=== PATIENT | male | born 1950 | race Caucasian/White ===

== ENCOUNTER 2018-12-28 09:37 | Inpatient (IN) | payer OTHER ==
[2018-12-28 10:45] VITALS: BMI 24.7
--- NOTE | 2018-12-28 11:32 | HP ---
CIWA Score Nausea/Vomitin Muscle Tremors: 3 Anxiety: 3 Agitation: 3 Paroxysmal Sweats: 1-Minimal Palms Moist Orientation: 0-Oriented Tacttile Disturbances: 1-Very Mild Itch/Numbness Auditory Disturbances: 1-Very Mild Visual Disturbances: 0-None Headache: 2-Mild CIWA-Ar Total Score: 16 - Admission Criteria OASAS Guidelines: Admission for Medically Managed Detox: Requires at least one of the followin. CIWA greater than 12 2. Seizures within the past 24 hours 3. Delirium tremens within the past 24 hours 4. Hallucinations within the past 24 hours 5. Acute intervention needed for co occurring medical disorder 6. Acute intervention needed for co occurring psychiatric disorder 7. Severe withdrawal that cannot be handled at a lower level of care (continued vomiting, continued diarrhea, abnormal vital signs) requiring intravenous medication and/or fluids 8. Admission ROS S - HPI Chief Complaint: i need help to stop drinking alcohol Allergies/Adverse Reactions: Allergies Allergy/AdvReac Type Severity Reaction Status Date / Time No Known Allergies Allergy Verified 12/28/18 10:33 History of Present Illness: this 68 years old male wit alcohol dependence,seeking detox,withdrawal symptom, seen in [facility] last night ,stated had altercation with police last night ,had fx of humerus left also receiving librium and pain killer medication in [facility] multiple admissions in detox,last 2016 in [facility] hypertension,type 2 dm syncope alcohol related asthma left upper arm with immobilization and arm sling no significant period of sobriety plan for out patient program and follow up with clinic at [facility] - Ebola screening Have you traveled outside of the country in the last 21 days: No Have you had contact with anyone from an Ebola affected area: No Do you have a fever: No - Review of Systems Constitutional: Loss of Appetite, Malaise, Night Sweats, Changes in sleep EENT: reports: Nose Congestion Respiratory: reports: No Symptoms reported Cardiac: reports: No Symptoms Reported GI: reports: Nausea, Indigestion, Abdominal cramping : reports: No Symptoms Reported, Other (bph) Musculoskeletal: reports: Back Pain, Muscle Pain Integumentary: reports: Dryness Neuro: reports: Headache, Tremors Endocrine: reports: No Symptoms Reported, Other (type 2 dm) Hematology: reports: No Symptoms Reported Psychiatric: reports: No Sypmtoms Reported, Judgement Intact, Mood/Affect Appropiate, Orientated x3 Other Systems: Reviewed and Negative Patient History - Patient Medical History Hx Anemia: No Hx Asthma: Yes (on albuterol inhaler) Hx Chronic Obstructive Pulmonary Disease (COPD): No Hx Cancer: No Hx Cardiac Disorders: No Hx Congestive Heart Failure: No Hx Hypertension: Yes (currently on treatment) Hx Hypercholesterolemia: No Hx Pacemaker: No HX Cerebrovascular Accident: No Hx Seizures: No Hx Dementia: No Hx Diabetes: Yes (NIDDM) Hx Gastrointestinal Disorders: Yes (appendectomy in 2013) Hx Liver Disease: Yes Hx Genitourinary Disorders: No Hx Sexually Transmitted Disorders: No Hx Renal Disease (ESRD): No Hx Thyroid Disease: No Hx Human Immunodeficiency Virus (HIV): No (last 10/13 negative) Hx Hepatitis C: No Hx Depression: Yes Hx Suicide Attempt: No Hx Schizophrenia: No Other Medical History: no suicidal,no homicidal,fx of left humerus on 12/28/18 treated at [facility] - Patient Surgical History Past Surgical History: Yes Hx Neurologic Surgery: No Hx Cataract Extraction: No Hx Cardiac Surgery: No Hx Lung Surgery: No Hx Breast Surgery: No Hx Breast Biopsy: No Hx Abdominal Surgery: No Hx Appendectomy: Yes (in 2013) Hx Cholecystectomy: No Hx Genitourinary Surgery: No Hx Section: No Hx Orthopedic Surgery: No Anesthesia Reaction: No - PPD History Previous Implant?: Yes Documented Results: Positive w/o proof Implanted On Prior R Admission?: No PPD to be Administered?: No - Smoking Cessation Smoking history: Never smoked Have you smoked in the past 12 months: No Aproximately how many cigarettes per day: 0 Cigars Per Day: 0 Hx Chewing Tobacco Use: No - Substance & Tx. History Hx Alcohol Use: Yes Hx Substance Use: Yes Substance Use Type: Alcohol Hx Substance Use Treatment: Yes (2017 in [facility]) - Substances abused Alcohol Frequency: Daily Amount used: 7 CANS OF BEER. 1/2 BOTTLE BACARDI Age of first use: 20 Date of last use: 12/27/18 Family Disease History - Family Disease History Family Disease History: Other: Father (ALCOHOL) Admission Physical Exam BHS - Vital Signs Vital Signs: Vital Signs - 24 hr 12/28/18 12/28/18 10:38 10:54 Temperature 99.2 F 99.2 F Pulse Rate 95 H 95 H Respiratory 18 18 Rate Blood Pressure 136/84 136/84 - Physical General Appearance: Yes: Moderate Distress, Tremorous, Irritable, Sweating, Anxious HEENTM: Yes: Normal ENT Inspection, RADU, Pharynx Normal Respiratory: Yes: Lungs Clear, Normal Breath Sounds, No Respiratory Distress Neck: Yes: Within Normal Limits, Supple, Trachea in good position Breast: Yes: Within Normal Limits Cardiology: Yes: Within Normal Limits, Regular Rhythm, Regular Rate, S1, S2 Abdominal: Yes: Within Normal Limits, Normal Bowel Sounds, Non Tender, Flat Genitourinary: Yes: Within Normal Limits Back: Yes: Muscle Spasm Musculoskeletal: Yes: Back pain, Muscle Pain Extremities: Yes: Normal Range of Motion, Tremors, Other (left upper arm in immobilization wtih arm sling) Neurological: Yes: 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 II-XII NML intact, Fully Oriented, Alert, Motor Strength 5/5 Integumentary: Yes: Dry Lymphatic: Yes: Within Normal Limits - Diagnostic (1) Alcohol dependence with uncomplicated withdrawal Current Visit: Yes Status: Acute (2) BPH (benign prostatic hyperplasia) Current Visit: No Status: Acute (3) Hypertension Current Visit: No Status: Acute (4) PPD positive Current Visit: No Status: Acute (5) Type II diabetes mellitus Current Visit: No Status: Acute (6) Syncope Current Visit: Yes Status: Acute (7) Humerus fracture Current Visit: Yes Status: Acute Qualifiers: Laterality: left (8) Weight loss Current Visit: Yes Status: Acute Cleared for Admission S - Detox or Rehab [facility] Level of Care: Medically Managed Detox Regimen/Protocol: Librium Breathalyzer - Breathalyzer Breathalyzer: 0.027 Urine Drug Screen - Test Device Lot number: [id number] Expiration date: 07/24/20 - Control Is test valid?: Yes - Results Drug screen NEGATIVE: No Urine drug screen results: OXY-Oxycodone, BZO-Benzodiazepines Inpatient Rehab Admission - Rehab Decision to Admit Inpatient rehab admission?: No
[2018-12-28] MEDS ORDERED: chlordiazePOXIDE HCL 25 MG CAPSULE PO PRN (11:41)
[2018-12-28] MEDS ORDERED: BISMUTH SUBSALICYLATE 262 MG/15 ML BTL PO PRN (11:41)
[2018-12-28] MEDS ORDERED: MAG HYDROX/AL HYDROX/SIMETH 30 ML UNIT-DOSE CUP PO PRN (11:41)
[2018-12-28] MEDS ORDERED: MENTHOL/PHENOL 1 EACH UD MM PRN (11:41)
[2018-12-28] MEDS ORDERED: MELATONIN 5 MG TABLETS PO PRN (11:41)
[2018-12-28] MEDS ORDERED: hydrOXYzine PAMOATE 25 MG CAPSULE (FP) PO PRN (11:41)
[2018-12-28] MEDS ORDERED: MAGNESIUM CITRATE 300 ML BOTTLE PO PRN (11:41)
[2018-12-28] MEDS ORDERED: MAGNESIUM HYDROX 2400MG/30ML ORAL SUSPENSION 30 ML CUP PO PRN (11:41)
[2018-12-28] MEDS ORDERED: ACETAMINOPHEN 325 MG TABLET (FP) PO PRN (11:41)
[2018-12-28] MEDS ORDERED: ALBUTEROL SO4 8 GM HFA INHALER IH PRN (11:50)
[2018-12-28] MEDS: chlordiazePOXIDE HCL 25 MG CAPSULE PO SCH ×2 (17:35→22:46)
[2018-12-28] MEDS: metFORMIN HCL 500 MG TABLET (FP) PO SCH (17:36)
[2018-12-28] MEDS: IBUPROFEN 400 MG TABLET (FP) PO PRN (17:43)
[2018-12-28 19:04] LABS: HEMATOCRIT 38.5 % (35.4-49); HEMOGLOBIN 12.8 GM/dL (11.7-16.9); MCH 30.1 pg (25.7-33.7); MCHC 33.3 g/dl (32.0-35.9); MEAN CELL VOLUME 90.5 fl (80-96); MEAN PLT VOLUME 8.4 fl (7.5-11.1); PLATELET COUNT 213 K/MM3 (134-434); RBC 4.26 M/mm3 (4.00-5.60); RDW 14.1 % (11.9-15.9); WHITE BLOOD COUNT 5.5 K/mm3 (4.0-10.0)
[2018-12-28 19:31] LABS: ALBUMIN 3.9 g/dl (3.4-5.0); ALK PHOS 113 U/L (45-117); ANION GAP 10 MMOL/L (8-16); BILIRUBIN,TOTAL 1.1 mg/dL (0.2-1); BLOOD UREA NITROGEN 11 mg/dL (7-18); CALCIUM 8.9 mg/dL (8.5-10.1); CHLORIDE 103 mmol/L (98-107); CO2 26 mmol/L (21-32); CREATININE 0.7 mg/dL (0.55-1.3); GLUCOSE,RANDOM 171 mg/dL (74-106); POTASSIUM 3.7 mmol/L (3.5-5.1); SGOT/AST 39 U/L (15-37); SGPT/ALT 21 U/L (13-61); SODIUM 139 mmol/L (136-145); TOT PROT 7.8 g/dl (6.4-8.2)
[2018-12-28] MEDS: MONTELUKAST NA 10 MG TABLET PO SCH (22:45)
[2018-12-28] MEDS: THIAMINE HCL 100 MG TABLET (FP) PO SCH (22:46)
[2018-12-28] MEDS: ACETAMINOPHEN 325 MG TABLET (FP) PO PRN (22:47)
[2018-12-29] MEDS: chlordiazePOXIDE HCL 25 MG CAPSULE PO SCH ×4 (06:54→22:50)
[2018-12-29] MEDS: metFORMIN HCL 500 MG TABLET (FP) PO SCH ×2 (06:55→17:32)
[2018-12-29] MEDS: IBUPROFEN 400 MG TABLET (FP) PO PRN (06:58)
--- NOTE | 2018-12-29 10:07 | PN ---
S CIWA - CIWA Score Nausea/Vomitin Muscle Tremors: 3 Anxiety: 2 Agitation: 2 Paroxysmal Sweats: 1-Minimal Palms Moist Orientation: 0-Oriented Tacttile Disturbances: 1-Very Mild Itch/Numbness Auditory Disturbances: 1-Very Mild Visual Disturbances: 0-None Headache: 2-Mild CIWA-Ar Total Score: 14 BHS Progress Note (SOAP) Subjective: alert,irritable,anxious,interrupted sleep,pain in body ,left upper arm,on immobilization with arm sling left Objective: 12/29/18 10:04 Vital Signs Temperature 97.3 F L 12/29/18 08:11 Pulse Rate 77 12/29/18 08:11 Respiratory Rate 18 12/29/18 08:11 Blood Pressure 154/97 12/29/18 08:11 O2 Sat by Pulse Oximetry (%) 12/29/18 10:04 Laboratory Last Values WBC 5.5 K/mm3 (4.0-10.0) 12/28/18 11:30 RBC 4.26 M/mm3 (4.00-5.60) 12/28/18 11:30 Hgb 12.8 GM/dL (11.7-16.9) 12/28/18 11:30 Hct 38.5 % (35.4-49) 12/28/18 11:30 MCV 90.5 fl (80-96) 12/28/18 11:30 MCH 30.1 pg (25.7-33.7) 12/28/18 11:30 MCHC 33.3 g/dl (32.0-35.9) 12/28/18 11:30 RDW 14.1 % (11.9-15.9) 12/28/18 11:30 Plt Count 213 K/MM3 (134-434) 12/28/18 11:30 MPV 8.4 fl (7.5-11.1) 12/28/18 11:30 Sodium 139 mmol/L (136-145) 12/28/18 11:30 Potassium 3.7 mmol/L (3.5-5.1) 12/28/18 11:30 Chloride 103 mmol/L (98-107) 12/28/18 11:30 Carbon Dioxide 26 mmol/L (21-32) 12/28/18 11:30 Anion Gap 10 MMOL/L (8-16) 12/28/18 11:30 BUN 11 mg/dL (7-18) 12/28/18 11:30 Creatinine 0.7 mg/dL (0.55-1.3) 12/28/18 11:30 Creat Clearance w eGFR 112.15 (>60) 12/28/18 11:30 POC Glucometer 100 UNITS (80-120) 12/29/18 06:50 Random Glucose 171 mg/dL (74-106) H 12/28/18 11:30 Calcium 8.9 mg/dL (8.5-10.1) 12/28/18 11:30 Total Bilirubin 1.1 mg/dL (0.2-1) H 12/28/18 11:30 AST 39 U/L (15-37) H 12/28/18 11:30 ALT 21 U/L (13-61) 12/28/18 11:30 Alkaline Phosphatase 113 U/L (45-117) 12/28/18 11:30 Total Protein 7.8 g/dl (6.4-8.2) 12/28/18 11:30 Albumin 3.9 g/dl (3.4-5.0) 12/28/18 11:30 Assessment: 12/29/18 10:05 withdrawal symptom Plan: continue detox,follow up with [facility] for orthopedic follow up after discharge for fx humerus left
[2018-12-29] MEDS: PRENATAL VITAMINS W/ FOLIC ACID TABLET (FP) PO SCH (10:37)
[2018-12-29 12:27] LABS: URINE APPEARANCE CLEAR; URINE BILIRUBIN NEGATIVE (NEGATIVE); URINE COLOR YELLOW; URINE GLUCOSE (UA) NEGATIVE (NEGATIVE); URINE KETONE NEGATIVE (NEGATIVE); URINE LEUK ESTERASE NEGATIVE (NEGATIVE); URINE NITRITE NEGATIVE (NEGATIVE); URINE PROTEIN NEGATIVE (NEGATIVE); URINE UROBILINOGEN 0.2 mg/dL (0.2-1.0)
[2018-12-29] MEDS: MONTELUKAST NA 10 MG TABLET PO SCH (22:50)
[2018-12-29] MEDS: THIAMINE HCL 100 MG TABLET (FP) PO SCH (22:50)
[2018-12-30] MEDS: metFORMIN HCL 500 MG TABLET (FP) PO SCH ×2 (07:30→17:28)
[2018-12-30] MEDS: chlordiazePOXIDE HCL 25 MG CAPSULE PO SCH ×2 (07:30→11:00)
[2018-12-30] MEDS: ACETAMINOPHEN 325 MG TABLET (FP) PO PRN (07:42)
[2018-12-30] MEDS: PRENATAL VITAMINS W/ FOLIC ACID TABLET (FP) PO SCH (11:00)
[2018-12-30] MEDS: METHOCARBAMOL 500 MG TABLET PO PRN ×2 (11:08→22:33)
--- NOTE | 2018-12-30 16:47 | PN ---
[facility] CIWA - CIWA Score Nausea/Vomitin-No Nausea/No Vomiting Muscle Tremors: 2 Anxiety: 4-Mod. Anxious/Guarded Agitation: 0-Normal Activity Paroxysmal Sweats: 1-Minimal Palms Moist Orientation: 2-Disoriented Date<2 days Tacttile Disturbances: 0-None Auditory Disturbances: 0-None Visual Disturbances: 2-Mild Sensitivity Headache: 0-None Present CIWA-Ar Total Score: 11 S Progress Note (SOAP) Subjective: Anxious, tremors, Body aches. Objective: PATIENT A & O X 2 (UNCERTAIN ABOUT CURRENT DAY / DATE). IN NO ACUTE DISTRESS. PATIENT OBSERVED LYING IN BED WITH LEFT ARM IN SLING. 12/30/18 16:45 Vital Signs Temperature 98.4 F 12/30/18 13:46 Pulse Rate 115 H 12/30/18 13:46 Respiratory Rate 18 12/30/18 13:46 Blood Pressure 128/80 12/30/18 13:46 O2 Sat by Pulse Oximetry (%) Laboratory Tests 12/28/18 12/28/18 12/28/18 11:15 11:30 11:30 WBC 5.5 RBC 4.26 Hgb 12.8 Hct 38.5 MCV 90.5 MCH 30.1 MCHC 33.3 RDW 14.1 Plt Count 213 MPV 8.4 Sodium Potassium Chloride Carbon Dioxide Anion Gap BUN Creatinine Creat Clearance w eGFR POC Glucometer 163 Random Glucose Calcium Total Bilirubin AST ALT Alkaline Phosphatase Total Protein Albumin Urine Color Urine Appearance Urine pH Ur Specific [place] Urine Protein Urine Glucose (UA) Urine Ketones Urine Blood Urine Nitrite Urine Bilirubin Urine Urobilinogen Ur Leukocyte Esterase RPR Titer Nonreactive 12/28/18 12/28/18 12/29/18 11:30 16:46 06:50 WBC RBC Hgb Hct MCV MCH MCHC RDW Plt Count MPV Sodium 139 Potassium 3.7 Chloride 103 Carbon Dioxide 26 Anion Gap 10 BUN 11 Creatinine 0.7 Creat Clearance w eGFR 112.15 POC Glucometer 121 100 Random Glucose 171 H Calcium 8.9 Total Bilirubin 1.1 H AST 39 H ALT 21 Alkaline Phosphatase 113 Total Protein 7.8 Albumin 3.9 Urine Color Urine Appearance Urine pH Ur Specific [place] Urine Protein Urine Glucose (UA) Urine Ketones Urine Blood Urine Nitrite Urine Bilirubin Urine Urobilinogen Ur Leukocyte Esterase RPR Titer 12/29/18 12/29/18 12/30/18 10:00 16:26 07:26 WBC RBC Hgb Hct MCV MCH MCHC RDW Plt Count MPV Sodium Potassium Chloride Carbon Dioxide Anion Gap BUN Creatinine Creat Clearance w eGFR POC Glucometer 128 114 Random Glucose Calcium Total Bilirubin AST ALT Alkaline Phosphatase Total Protein Albumin Urine Color Yellow Urine Appearance Clear Urine pH 7.0 Ur Specific [place] 1.007 L Urine Protein Negative Urine Glucose (UA) Negative Urine Ketones Negative Urine Blood Negative Urine Nitrite Negative Urine Bilirubin Negative Urine Urobilinogen 0.2 Ur Leukocyte Esterase Negative RPR Titer 12/30/18 16:36 WBC RBC Hgb Hct MCV MCH MCHC RDW Plt Count MPV Sodium Potassium Chloride Carbon Dioxide Anion Gap BUN Creatinine Creat Clearance w eGFR POC Glucometer 125 Random Glucose Calcium Total Bilirubin AST ALT Alkaline Phosphatase Total Protein Albumin Urine Color Urine Appearance Urine pH Ur Specific [place] Urine Protein Urine Glucose (UA) Urine Ketones Urine Blood Urine Nitrite Urine Bilirubin Urine Urobilinogen Ur Leukocyte Esterase RPR Titer LABS NOTED. 12/30/18 16:46 Assessment: 12/30/18 16:45 WITHDRAWAL SYMPTOMS. Plan: CONTINUE DETOX. INCREASE DAILY PO FLUID / WATER INTAKE. PATIENT ADVISED TO FOLLOW-UP AT [facility] ([place], [place]) AFTER DISCHARGE FORM DETOX UNIT FOR FRACTURE OF HUMERUS OF LEFT ARM (PATIENT INITIALLY TREATED AT [facility] AFTER FRACTURE OCCURRED).
[2018-12-30] MEDS ORDERED: chlordiazePOXIDE HCL 10 MG CAPSULE PO PRN (17:00)
[2018-12-30] MEDS: chlordiazePOXIDE HCL 10 MG CAPSULE PO SCH ×2 (17:28→22:31)
[2018-12-30] MEDS: IBUPROFEN 400 MG TABLET (FP) PO PRN (17:30)
[2018-12-30] MEDS: THIAMINE HCL 100 MG TABLET (FP) PO SCH (22:31)
[2018-12-30] MEDS: MONTELUKAST NA 10 MG TABLET PO SCH (22:31)
[2018-12-31] MEDS: metFORMIN HCL 500 MG TABLET (FP) PO SCH ×2 (06:30→17:25)
[2018-12-31] MEDS: chlordiazePOXIDE HCL 10 MG CAPSULE PO SCH ×3 (06:37→17:52)
--- NOTE | 2018-12-31 10:02 | PN ---
BHS Progress Note (SOAP) Subjective: alert,irritable,anxious,interrupted sleep Objective: 12/31/18 10:00 Vital Signs Temperature 98.1 F 12/31/18 09:14 Pulse Rate 105 H 12/31/18 09:14 Respiratory Rate 18 12/31/18 09:14 Blood Pressure 131/78 12/31/18 09:14 O2 Sat by Pulse Oximetry (%) Assessment: 12/31/18 10:00 withdrawal symptom Plan: continue detox,discharge in am,follow up with orthopedic clinic in [facility] for fx of left humerus
[2018-12-31] MEDS: METHOCARBAMOL 500 MG TABLET PO PRN ×2 (10:54→22:36)
[2018-12-31] MEDS: PRENATAL VITAMINS W/ FOLIC ACID TABLET (FP) PO SCH (10:54)
[2018-12-31] MEDS: IBUPROFEN 400 MG TABLET (FP) PO PRN (10:54)
[2018-12-31] MEDS: MONTELUKAST NA 10 MG TABLET PO SCH (22:33)
[2018-12-31] MEDS: THIAMINE HCL 100 MG TABLET (FP) PO SCH (22:33)
[2019-01-01 06:08] VITALS: TEMP 97.9
[2019-01-01] MEDS: chlordiazePOXIDE HCL 10 MG CAPSULE PO SCH (06:31)
[2019-01-01] MEDS: metFORMIN HCL 500 MG TABLET (FP) PO SCH (07:27)
--- NOTE | 2019-01-01 08:45 | DS ---
[facility] Detox Discharge Summary Admission Date: 12/28/18 Discharge Date: 01/01/19 - History Present History: Alcohol Dependence - Physical Exam Results Vital Signs: Vital Signs Temperature 97.9 F 01/01/19 06:07 Pulse Rate 94 H 01/01/19 06:07 Respiratory Rate 18 01/01/19 06:07 Blood Pressure 143/84 01/01/19 06:07 O2 Sat by Pulse Oximetry (%) - Treatment Hospital Course: Detox Protocol Followed, Detoxed Safely, Responded well, Discharged Condition Good, Rehab Referral Accepted - Medication Discharge Medications: Ambulatory Orders NK [No Known Home Medication] 02/27/15 Albuterol Sulfate Inhaler - [Ventolin Hfa Inhaler -] 2 inh PO Q4H PRN 12/28/18 Metformin HCl [Glucophage] 500 mg PO BID 12/28/18 Montelukast Na [Singulair -] 10 mg PO HS 12/28/18 - Diagnosis (1) Alcohol dependence with uncomplicated withdrawal Current Visit: Yes Status: Chronic (2) Humerus fracture Current Visit: Yes Status: Acute Qualifiers: Encounter type: initial encounter Fracture type: closed Fracture morphology: unspecified fracture morphology Laterality: left (3) Syncope Current Visit: Yes Status: Acute (4) Weight loss Current Visit: Yes Status: Acute (5) BPH (benign prostatic hyperplasia) Current Visit: Yes Status: Chronic Qualifiers: Lower urinary tract symptom presence: symptoms absent Qualified Code(s): N40.0 - Benign prostatic hyperplasia without lower urinary tract symptoms (6) Drug-induced mood disorder Current Visit: No Status: Acute (7) Hypertension Current Visit: No Status: Acute (8) Left shoulder pain Current Visit: Yes Status: Acute Qualifiers: Chronicity: acute Qualified Code(s): M25.512 - Pain in left shoulder (9) PPD positive Current Visit: No Status: Acute (10) Type II diabetes mellitus Current Visit: No Status: Acute (11) Asthma Current Visit: Yes Status: Chronic Qualifiers: Asthma severity: mild Asthma persistence: unspecified Asthma complication type: unspecified Qualified Code(s): J45.909 - Unspecified asthma , uncomplicated (12) Diabetes mellitus Current Visit: No Status: Chronic (13) Hypertension Current Visit: No Status: Chronic - AMA Did Patient Leave Against Medical Advice: No (referred to [facility] for shoulder fx prior to our admissio)
[2019-01-01 09:42] VITALS: BP 123/67; PULSE 98
[2019-01-01] MEDS: PRENATAL VITAMINS W/ FOLIC ACID TABLET (FP) PO SCH (11:40)
== END 2019-01-01 14:00 | disposition home or self-care (01) | DRG 897 ==
LOC: YASAS 09:37 → Y6N 11:37
PROVIDERS: ADMIT Surgery; ATTEND Surgery
PROC: HZ2ZZZZ Detoxification Services for Substance Abuse Treatment (ICD-10-PCS; principal; 2018-12-28)
DX: F10.230 Alcohol dependence with withdrawal, uncomplicated (principal); F19.24 Other psychoactive substance dependence with psychoactive substance-induced mood disorder; I10 Essential (primary) hypertension; N40.0 Benign prostatic hyperplasia without lower urinary tract symptoms; R76.11 Nonspecific reaction to tuberculin skin test without active tuberculosis; E11.9 Type 2 diabetes mellitus without complications; J45.909 Unspecified asthma, uncomplicated; M25.512 Pain in left shoulder; R63.4 Abnormal weight loss
CPT/HCPCS: 36415; 71045-TC-FY; 80053; 81003; 82962; 85027; 86593

== ENCOUNTER 2019-05-27 10:43 | Inpatient (IN) | payer OTHER ==
[2019-05-27 10:58] VITALS: BMI 23.5
--- NOTE | 2019-05-27 12:26 | HP ---
Addendum entered and electronically signed by Rj Rizo, RESIDENT 13:22: Patient had a fall and head hit for which he was seen at [facility] prior to arrival at this facility. Had CT head and cervical neck performed, lab work ( BMP, CBC, ETOH) and had a laceration repair performed on R side of head with nigel in place. Was discharged from the hospital in stable condition and sent here for detox for alcohol. Addendum entered and electronically signed by Rj Rizo, RESIDENT 13:04: Medications reconciled through patient's pharmacy [facility] on [address] and no noted mention of any DM medications. Metformin not restarted. May need to restart if BGMs abnormal. Original Note: CIWA Score Nausea/Vomitin Muscle Tremors: 4-Moderate,w/Arms Extend Anxiety: 2 Agitation: 2 Paroxysmal Sweats: 1-Minimal Palms Moist Orientation: 0-Oriented Tacttile Disturbances: 0-None Auditory Disturbances: 0-None Visual Disturbances: 0-None Headache: 2-Mild CIWA-Ar Total Score: 14 - Admission Criteria OASAS Guidelines: Admission for Medically Managed Detox: Requires at least one of the followin. CIWA greater than 12 2. Seizures within the past 24 hours 3. Delirium tremens within the past 24 hours 4. Hallucinations within the past 24 hours 5. Acute intervention needed for co occurring medical disorder 6. Acute intervention needed for co occurring psychiatric disorder 7. Severe withdrawal that cannot be handled at a lower level of care (continued vomiting, continued diarrhea, abnormal vital signs) requiring intravenous medication and/or fluids 8. Patient presents the following: CIWA greater than 12 Admission Criteria Met: Admission criteria met Admitting History and Physical - Smoking History Smoking history: Never smoked Have you smoked in the past 12 months: No Aproximately how many cigarettes per day: 0 - Alcohol/Substance Use Hx Alcohol Use: Yes Admission ROS BHS - HPI Chief Complaint: Esau Dennis is a 68 year old male who is presenting for alcohol detox. Allergies/Adverse Reactions: Allergies Allergy/AdvReac Type Severity Reaction Status Date / Time No Known Allergies Allergy Verified 05/27/19 10:46 History of Present Illness: Esau Dennis is a 68 year old male who is presenting for alcohol detox. Alcohol: 5-7 beers 12oz beers per day and 1/2-1 pint per day. Daily drinker. last drink was before presenting to [facility] where he was today after a fall and head hit. has been drinking for more than 20 years. has never had a seizure in the past. Has had blackouts. Denies other substance use. Has been to detox and rehab in the past. Has been at this facility in December most recently. is unsure of what he wants to do after detox. Medical History: asthma, DM, HTN Psychiatric History: depression Surgical History: appendectomy Smoking: denies Social: lives in long term. SSI to pay for alcohol. Exam Limitations: No Limitations - Ebola screening Have you traveled outside of the country in the last 21 days: No Have you had contact with anyone from an Ebola affected area: No Do you have a fever: No - Review of Systems Constitutional: Diaphoresis, Loss of Appetite EENT: reports: Other (head pain around laceration site) Respiratory: reports: Cough, SOB with Exertion Cardiac: reports: No Symptoms Reported GI: reports: Nausea : reports: No Symptoms Reported Musculoskeletal: reports: Muscle Pain Neuro: reports: Headache Endocrine: reports: No Symptoms Reported Hematology: reports: No Symptoms Reported Psychiatric: reports: Orientated x3, Anxious Patient History - Patient Medical History Hx Anemia: No Hx Asthma: Yes Hx Chronic Obstructive Pulmonary Disease (COPD): No Hx Cancer: No Hx Cardiac Disorders: No Hx Congestive Heart Failure: No Hx Hypertension: Yes Hx Hypercholesterolemia: No Hx Pacemaker: No HX Cerebrovascular Accident: No Hx Seizures: No Hx Dementia: No Hx Diabetes: Yes Hx Gastrointestinal Disorders: No Hx Liver Disease: No Hx Genitourinary Disorders: No Hx Sexually Transmitted Disorders: No Hx Renal Disease (ESRD): No Hx Thyroid Disease: No Hx Human Immunodeficiency Virus (HIV): No (negative) Hx Hepatitis C: No Hx Depression: Yes Hx Suicide Attempt: No (denies) Hx Bipolar Disorder: No Hx Schizophrenia: No - Patient Surgical History Past Surgical History: Yes Hx Neurologic Surgery: No Hx Cataract Extraction: No Hx Cardiac Surgery: No Hx Lung Surgery: No Hx Breast Surgery: No Hx Breast Biopsy: No Hx Abdominal Surgery: No Hx Appendectomy: Yes (1961) Hx Cholecystectomy: No Hx Genitourinary Surgery: No Hx Section: No Hx Orthopedic Surgery: No Anesthesia Reaction: No - PPD History Date: 03/01/15 - Smoking Cessation Smoking history: Never smoked Have you smoked in the past 12 months: No Aproximately how many cigarettes per day: 0 Cigars Per Day: 0 Hx Chewing Tobacco Use: No - Substance & Tx. History Hx Alcohol Use: Yes Substance Use Type: Alcohol - Substances abused Alcohol Substance route: Oral Frequency: Daily Amount used: 7 CANS OF BEER. 1/2 PT BOTTLE BACARDI Age of first use: 20 Date of last use: 05/26/19 Admission Physical Exam [facility] - Vital Signs Vital Signs: Vital Signs - 24 hr 05/27/19 05/27/19 10:45 12:07 Temperature 98.8 F 98.8 F Pulse Rate 87 87 Respiratory 18 18 Rate Blood Pressure 138/74 138/74 - Physical General Appearance: Yes: Disheveled, Mild Distress HEENTM: Yes: EOMI, Normocephalic, RADU, Pharynx Normal, Lessions (noted nigel on the R posterior side of the head) Respiratory: Yes: Chest Non-Tender, Lungs Clear, Normal Breath Sounds, No Respiratory Distress, No Accessory Muscle Use Neck: Yes: No masses,lesions,Nodules, Trachea in good position Breast: Yes: Breast Exam Deferred Cardiology: Yes: Regular Rhythm, Regular Rate, S1, S2 Abdominal: Yes: Normal Bowel Sounds, Flat, Soft, Tenderness (mild tenderess) Genitourinary: Yes: Within Normal Limits Back: Yes: Normal Inspection Musculoskeletal: Yes: Back pain, Joint Stiffness Extremities: Yes: Normal Capillary Refill, Normal Range of Motion, Non-Tender Neurological: Yes: denial resolution specialist II-XII NML intact, Alert, Motor Strength 5/5 Integumentary: Yes: Normal Color, Dry, Other (mildly cool extremities) - Diagnostic (1) Drug-induced mood disorder Current Visit: No Status: Acute (2) Hypertension Current Visit: No Status: Acute (3) Type II diabetes mellitus Current Visit: No Status: Acute (4) Alcohol dependence with uncomplicated withdrawal Current Visit: No Status: Chronic (5) Asthma Current Visit: No Status: Chronic Qualifiers: Asthma severity: mild Asthma persistence: unspecified Asthma complication type: unspecified Qualified Code(s): J45.909 - Unspecified asthma , uncomplicated (6) BPH (benign prostatic hyperplasia) Current Visit: No Status: Chronic Qualifiers: Lower urinary tract symptom presence: symptoms absent Qualified Code(s): N40.0 - Benign prostatic hyperplasia without lower urinary tract symptoms Breathalyzer - Breathalyzer Breathalyzer: 0.097 Urine Drug Screen - Test Device Lot number: [id number] Expiration date: 01/22/21 - Control Is test valid?: Yes - Results Drug screen NEGATIVE: No Urine drug screen results: BZO-Benzodiazepines Inpatient Rehab Admission - Rehab Decision to Admit Inpatient rehab admission?: No
[2019-05-27] MEDS ORDERED: MAG HYDROX/AL HYDROX/SIMETH 30 ML UNIT-DOSE CUP PO PRN (12:51)
[2019-05-27] MEDS ORDERED: MENTHOL/PHENOL 1 EACH UD MM PRN (12:51)
[2019-05-27] MEDS ORDERED: METHOCARBAMOL 500 MG TABLET PO PRN (12:51)
[2019-05-27] MEDS ORDERED: MAGNESIUM HYDROX 2400MG/30ML ORAL SUSPENSION 30 ML CUP PO PRN (12:51)
[2019-05-27] MEDS ORDERED: ACETAMINOPHEN 325 MG TABLET (FP) PO PRN ×2 (12:51)
[2019-05-27] MEDS ORDERED: chlordiazePOXIDE HCL 10 MG CAPSULE PO PRN (12:51)
[2019-05-27] MEDS ORDERED: BISMUTH SUBSALICYLATE 262 MG/15 ML BTL PO PRN (12:51)
[2019-05-27] MEDS ORDERED: MELATONIN 5 MG TABLETS PO PRN (12:51)
[2019-05-27] MEDS ORDERED: MAGNESIUM CITRATE 300 ML BOTTLE PO PRN (12:51)
[2019-05-27] MEDS ORDERED: hydrOXYzine PAMOATE 25 MG CAPSULE (FP) PO PRN (12:51)
[2019-05-27] MEDS ORDERED: IBUPROFEN 400 MG TABLET (FP) PO PRN (12:51)
[2019-05-27] MEDS ORDERED: ALBUTEROL SO4 8 GM HFA INHALER IH PRN (13:03)
--- NOTE | 2019-05-27 13:31 | PN ---
Teaching Attending Note Name of Resident: Rj Rizo ATTENDING PHYSICIAN STATEMENT I saw and evaluated the patient. I reviewed the resident's note and discussed the case with the resident. I agree with the resident's findings and plan as documented. SUBJECTIVE: 68 year old male here for alcohol detox., reports 5-7 beers 12oz beers / day and 1/2-1 pint per day x 20 years , latest use yesterday , fell while intoxicated, taken to [facility] , head scalp laceration stapled, had head and neck CT , d/c to this facility . Denies seizures, + blackouts , + tremors , current symptoms as above. Medical History: asthma, DM, HTN Psychiatric History: depression Surgical History: appendectomy OBJECTIVE: wnwd , tremulous , posterior parietal scalp wound w/ nigel c /d/i . Vital Signs - 24 hr 05/27/19 05/27/19 10:45 12:07 Temperature 98.8 F 98.8 F Pulse Rate 87 87 Respiratory 18 18 Rate Blood Pressure 138/74 138/74 ASSESSMENT AND PLAN: Alcohol dependence - Librium detox has f/up w/ general surgery @ [facility] 05/31/19 .
[2019-05-27] MEDS: chlordiazePOXIDE HCL 25 MG CAPSULE PO SCH (22:38)
[2019-05-27] MEDS: THIAMINE HCL 100 MG TABLET (FP) PO SCH (22:38)
[2019-05-28] MEDS: chlordiazePOXIDE HCL 25 MG CAPSULE PO SCH ×3 (07:55→22:18)
[2019-05-28 10:41] LABS: HEMATOCRIT 44.6 % (35.4-49); HEMOGLOBIN 14.9 GM/dL (11.7-16.9); MCH 32.1 pg (25.7-33.7); MCHC 33.3 g/dl (32.0-35.9); MEAN CELL VOLUME 96.3 fl (80-96); MEAN PLT VOLUME 9.3 fl (7.5-11.1); PLATELET COUNT 124 K/MM3 (134-434); RBC 4.63 M/mm3 (4.00-5.60); RDW 14.2 % (11.9-15.9); WHITE BLOOD COUNT 3.6 K/mm3 (4.0-10.0)
[2019-05-28] MEDS: PRENATAL VITAMINS W/ FOLIC ACID TABLET (FP) PO SCH (10:42)
[2019-05-28] MEDS: ASPIRIN COATED 81 MG TABLET.EC PO SCH (10:43)
[2019-05-28] MEDS: BACITRACIN 15 GM TUBE TOPICAL OINTMENT TP SCH (10:43)
[2019-05-28] MEDS: amLODIPine BESYLATE 5 MG TABLET (FP) PO SCH (10:43)
[2019-05-28] MEDS: LISINOPRIL 5 MG TABLET (FP) PO SCH (10:43)
[2019-05-28 11:03] LABS: ALBUMIN 3.9 g/dl (3.4-5.0); BLOOD UREA NITROGEN 11.2 mg/dL (7-18); CALCIUM 9.1 mg/dL (8.5-10.1); CREATININE 0.6 mg/dL (0.55-1.3); TOT PROT 8.2 g/dl (6.4-8.2)
--- NOTE | 2019-05-28 12:03 | PN ---
[facility] CIWA - CIWA Score Nausea/Vomitin-Mild Nausea/No Vomiting Muscle Tremors: 3 Anxiety: 2 Agitation: 2 Paroxysmal Sweats: No Perspiration Orientation: 0-Oriented Tacttile Disturbances: 0-None Auditory Disturbances: 0-None Visual Disturbances: 0-None Headache: 2-Mild CIWA-Ar Total Score: 10 BHS Progress Note (SOAP) Subjective: Patient c/o anxiety, headache, shakes and night sweats. Objective: 05/28/19 11:58 Laboratory Tests 05/27/19 05/27/19 05/27/19 13:42 16:16 23:32 WBC RBC Hgb Hct MCV MCH MCHC RDW Plt Count MPV Sodium Potassium Chloride Carbon Dioxide Anion Gap BUN Creatinine Est GFR (CKD-EPI)AfAm Est GFR (CKD-EPI)NonAf POC Glucometer 88 104 106 Random Glucose Calcium Total Bilirubin AST ALT Alkaline Phosphatase Total Protein Albumin 05/28/19 05/28/19 08:00 08:00 WBC 3.6 L RBC 4.63 Hgb 14.9 Hct 44.6 D MCV 96.3 H MCH 32.1 MCHC 33.3 RDW 14.2 Plt Count 124 L D MPV 9.3 D Sodium 135 L Potassium 4.0 Chloride 97 L Carbon Dioxide 25 Anion Gap 13 BUN 11.2 Creatinine 0.6 Est GFR (CKD-EPI)AfAm 119.74 Est GFR (CKD-EPI)NonAf 103.31 POC Glucometer Random Glucose 77 Calcium 9.1 Total Bilirubin 2.0 H AST 41 H ALT 37 Alkaline Phosphatase 105 Total Protein 8.2 Albumin 3.9 Vital Signs Temperature 97.8 F 05/28/19 09:29 Pulse Rate 95 H 05/28/19 09:29 Respiratory Rate 18 05/28/19 09:29 Blood Pressure 118/74 05/28/19 09:29 O2 Sat by Pulse Oximetry (%) PE alert and oriented x 3 skin warm, +facial flushing +perrla, eoms intact bl car s1s2 resp cta bl ext + tremors, no visible edema Assessment: 05/28/19 12:00 ETOH withdrawal symptoms Plan: continue detox encouraged oral fluids repeat cmp
[2019-05-28] MEDS: THIAMINE HCL 100 MG TABLET (FP) PO SCH (22:18)
[2019-05-29] MEDS: chlordiazePOXIDE 5 MG CAPSULE PO SCH ×3 (06:31→23:00)
[2019-05-29] MEDS: LISINOPRIL 5 MG TABLET (FP) PO SCH (10:32)
[2019-05-29] MEDS: PRENATAL VITAMINS W/ FOLIC ACID TABLET (FP) PO SCH (10:32)
[2019-05-29] MEDS: amLODIPine BESYLATE 5 MG TABLET (FP) PO SCH (10:32)
[2019-05-29] MEDS: ASPIRIN COATED 81 MG TABLET.EC PO SCH (10:32)
[2019-05-29] MEDS: BACITRACIN 15 GM TUBE TOPICAL OINTMENT TP SCH (10:33)
[2019-05-29 11:24] LABS: ALBUMIN 3.8 g/dl (3.4-5.0); BILIRUBIN,TOTAL 0.8 mg/dL (0.2-1); BLOOD UREA NITROGEN 18.3 mg/dL (7-18); CALCIUM 8.6 mg/dL (8.5-10.1); CREATININE 0.7 mg/dL (0.55-1.3); TOT PROT 7.7 g/dl (6.4-8.2)
[2019-05-29] MEDS ORDERED: NAPHAZOLINE/PHENIRAMINE OPHTHALMIC 15 ML BOTTLE OU PRN (12:13)
--- NOTE | 2019-05-29 12:29 | PN ---
S CIWA - CIWA Score Nausea/Vomitin-No Nausea/No Vomiting Muscle Tremors: 4-Moderate,w/Arms Extend Anxiety: 3 Agitation: 2 Paroxysmal Sweats: No Perspiration Orientation: 4Disoriented Place/Person Tacttile Disturbances: 3-Moderate Itch/Numb/Burn Auditory Disturbances: 0-None Visual Disturbances: 2-Mild Sensitivity Headache: 0-None Present CIWA-Ar Total Score: 18 BHS Progress Note (SOAP) Subjective: Anxious, Tremors, Fatigue, Interrupted Sleep. Objective: PATIENT A & O X 2 (UNCERTAIN ABOUT CURRENT LOCATION). PATIENT OBSERVED AMBULATING ON DETOX UNIT UNASSISTED. IN NO ACUTE DISTRESS. 05/29/19 12:20 Vital Signs Temperature 97 F L 05/29/19 09:12 Pulse Rate 110 H 05/29/19 09:12 Respiratory Rate 16 05/29/19 09:12 Blood Pressure 120/80 05/29/19 09:12 O2 Sat by Pulse Oximetry (%) Laboratory Tests 05/27/19 05/27/19 05/27/19 13:42 16:16 23:32 WBC RBC Hgb Hct MCV MCH MCHC RDW Plt Count MPV Sodium Potassium Chloride Carbon Dioxide Anion Gap BUN Creatinine Est GFR (CKD-EPI)AfAm Est GFR (CKD-EPI)NonAf POC Glucometer 88 104 106 Random Glucose Calcium Total Bilirubin AST ALT Alkaline Phosphatase Total Protein Albumin RPR Titer 05/28/19 05/28/19 05/28/19 08:00 08:00 08:00 WBC 3.6 L RBC 4.63 Hgb 14.9 Hct 44.6 D MCV 96.3 H MCH 32.1 MCHC 33.3 RDW 14.2 Plt Count 124 L D MPV 9.3 D Sodium 135 L Potassium 4.0 Chloride 97 L Carbon Dioxide 25 Anion Gap 13 BUN 11.2 Creatinine 0.6 Est GFR (CKD-EPI)AfAm 119.74 Est GFR (CKD-EPI)NonAf 103.31 POC Glucometer Random Glucose 77 Calcium 9.1 Total Bilirubin 2.0 H AST 41 H ALT 37 Alkaline Phosphatase 105 Total Protein 8.2 Albumin 3.9 RPR Titer Nonreactive 05/28/19 05/28/19 05/29/19 16:29 21:29 06:00 WBC RBC Hgb Hct MCV MCH MCHC RDW Plt Count MPV Sodium 134 L Potassium 4.0 Chloride 100 Carbon Dioxide 24 Anion Gap 10 BUN 18.3 H Creatinine 0.7 Est GFR (CKD-EPI)AfAm 112.38 Est GFR (CKD-EPI)NonAf 96.97 POC Glucometer 109 131 Random Glucose 93 Calcium 8.6 Total Bilirubin 0.8 AST 34 ALT 32 Alkaline Phosphatase 111 Total Protein 7.7 Albumin 3.8 RPR Titer 05/29/19 06:34 WBC RBC Hgb Hct MCV MCH MCHC RDW Plt Count MPV Sodium Potassium Chloride Carbon Dioxide Anion Gap BUN Creatinine Est GFR (CKD-EPI)AfAm Est GFR (CKD-EPI)NonAf POC Glucometer 111 Random Glucose Calcium Total Bilirubin AST ALT Alkaline Phosphatase Total Protein Albumin RPR Titer LABS NOTED. RESULTS OF REPEAT CMP NOTED. TOTAL BILIRUBIN (0.8) AND AST (34) NOW NOTED TO BE WITHIN NORMAL RANGE. BUN SLIGHTLY ELEVATED. PATIENT HAS HAD LOW WBC LEVELS ON PREVIOUS ADMISSIONS. 05/29/19 12:21 Assessment: 05/29/19 12:22 WITHDRAWAL SYMPTOMS. LEUKOPENIA. THROMBOCYTOPENIA. Plan: CONTINUE DETOX. INCREASE DAILY PO WATER INTAKE. PATIENT REPORTS THAT BOTH OF HIS EYES FEEL VERY "ITCHY" X APPROX. LAST 2 WEEKS. PATIENT DENIES KNOWN HISTORY OF CHRONIC OPTHALMIC DISORDER. NO ERYTHEMA NOTED IN BILATERAL EYES. NO DISCHARGE NOTED FROM EITHER EYE. SKIN IMMEDIATELY SURROUNDING BILATERAL EYE ERYTHEMATOUS (PATIENT IS FREQUENTLY RUBBING AND SCRATCHING EYES). CIPORFLOXACIN, 0.3 % EYE DROPS ORDERED FOR POSSIBLE BACTERIAL CONJUNCITIVITS ? VISINE-A ORDERED PRN FOR ITCHY EYES. PATIENT ADVISED TO AVOID RUBBING/SCRATCHING EYES MUCH POSSIBLE FOR TIME BEING AND TO THOROUGHLY WASH HANDS BEFORE AND AFTER TOUCHING EYES IF NECESSARY TO RUB EYES. PATIENT VERBALIZED UNDERSTANDING OF RECOMMENDATION. WILL CONTINUE TO MONITOR EYES.
[2019-05-29] MEDS: CIPROFLOXACIN HCL 0.3% OPHTH 2.5ML BOTTLE OU SCH ×6 (13:00→22:30)
[2019-05-29] MEDS: THIAMINE HCL 100 MG TABLET (FP) PO SCH (23:00)
[2019-05-30] MEDS ORDERED: chlordiazePOXIDE HCL 10 MG CAPSULE PO PRN
[2019-05-30] MEDS: CIPROFLOXACIN HCL 0.3% OPHTH 2.5ML BOTTLE OU SCH ×12 (01:44→22:30)
[2019-05-30] MEDS: chlordiazePOXIDE HCL 10 MG CAPSULE PO SCH ×3 (05:53→22:30)
[2019-05-30] MEDS: PRENATAL VITAMINS W/ FOLIC ACID TABLET (FP) PO SCH (09:36)
[2019-05-30] MEDS: LISINOPRIL 5 MG TABLET (FP) PO SCH (09:36)
[2019-05-30] MEDS: ASPIRIN COATED 81 MG TABLET.EC PO SCH (09:36)
[2019-05-30] MEDS: amLODIPine BESYLATE 5 MG TABLET (FP) PO SCH (09:36)
[2019-05-30] MEDS: BACITRACIN 15 GM TUBE TOPICAL OINTMENT TP SCH (09:38)
--- NOTE | 2019-05-30 10:23 | PN ---
S CIWA - CIWA Score Nausea/Vomitin-No Nausea/No Vomiting Muscle Tremors: 2 Anxiety: 2 Agitation: 2 Paroxysmal Sweats: No Perspiration Orientation: 0-Oriented Tacttile Disturbances: 0-None Auditory Disturbances: 0-None Visual Disturbances: 0-None Headache: 0-None Present CIWA-Ar Total Score: 6 BHS Progress Note (SOAP) Subjective: ambulating with wheelchair doing well with librium detox regimen less tremor no trouble swallowing no teeth but no trouble chewing Objective: 05/30/19 10:22 Vital Signs Temperature 98.0 F 05/30/19 09:07 Pulse Rate 104 H 05/30/19 09:07 Respiratory Rate 20 05/30/19 09:07 Blood Pressure 125/89 05/30/19 09:07 O2 Sat by Pulse Oximetry (%) Laboratory Last Values WBC 3.6 K/mm3 (4.0-10.0) L 05/28/19 08:00 RBC 4.63 M/mm3 (4.00-5.60) 05/28/19 08:00 Hgb 14.9 GM/dL (11.7-16.9) 05/28/19 08:00 Hct 44.6 % (35.4-49) D 05/28/19 08:00 MCV 96.3 fl (80-96) H 05/28/19 08:00 MCH 32.1 pg (25.7-33.7) 05/28/19 08:00 MCHC 33.3 g/dl (32.0-35.9) 05/28/19 08:00 RDW 14.2 % (11.9-15.9) 05/28/19 08:00 Plt Count 124 K/MM3 (134-434) L D 05/28/19 08:00 MPV 9.3 fl (7.5-11.1) D 05/28/19 08:00 Sodium 134 mmol/L (136-145) L 05/29/19 06:00 Potassium 4.0 mmol/L (3.5-5.1) 05/29/19 06:00 Chloride 100 mmol/L (98-107) 05/29/19 06:00 Carbon Dioxide 24 mmol/L (21-32) 05/29/19 06:00 Anion Gap 10 MMOL/L (8-16) 10/05/19 06:00 BUN 18.3 mg/dL (7-18) H 05/29/19 06:00 Creatinine 0.7 mg/dL (0.55-1.3) 05/29/19 06:00 Est GFR (CKD-EPI)AfAm 112.38 05/29/19 06:00 Est GFR (CKD-EPI)NonAf 96.97 05/29/19 06:00 POC Glucometer 135 UNITS (80-120) 05/30/19 05:51 Random Glucose 93 mg/dL (74-106) 05/29/19 06:00 Calcium 8.6 mg/dL (8.5-10.1) 05/29/19 06:00 Total Bilirubin 0.8 mg/dL (0.2-1) 05/29/19 06:00 AST 34 U/L (15-37) 05/29/19 06:00 ALT 32 U/L (13-61) 05/29/19 06:00 Alkaline Phosphatase 111 U/L (45-117) 05/29/19 06:00 Total Protein 7.7 g/dl (6.4-8.2) 05/29/19 06:00 Albumin 3.8 g/dl (3.4-5.0) 05/29/19 06:00 RPR Titer Nonreactive (NONREACTIVE) 05/28/19 08:00 lab noted anxious about his belonging Assessment: 05/30/19 10:23 Vital Signs alcohol withdrawal sx Plan: continue librium detox regimen
[2019-05-30] MEDS: THIAMINE HCL 100 MG TABLET (FP) PO SCH (22:30)
[2019-05-31] MEDS ORDERED: chlordiazePOXIDE HCL 10 MG CAPSULE PO ONE (05:00)
[2019-05-31] MEDS: CIPROFLOXACIN HCL 0.3% OPHTH 2.5ML BOTTLE OU SCH ×5 (07:01→10:35)
[2019-05-31] MEDS: BACITRACIN 15 GM TUBE TOPICAL OINTMENT TP SCH (10:30)
[2019-05-31] MEDS: amLODIPine BESYLATE 5 MG TABLET (FP) PO SCH (10:31)
[2019-05-31] MEDS: LISINOPRIL 5 MG TABLET (FP) PO SCH (10:31)
[2019-05-31] MEDS: PRENATAL VITAMINS W/ FOLIC ACID TABLET (FP) PO SCH (10:31)
[2019-05-31] MEDS: ASPIRIN COATED 81 MG TABLET.EC PO SCH (10:32)
[2019-05-31 13:16] VITALS: BP 119/75; PULSE 80; TEMP 97.9
--- NOTE | 2019-05-31 14:36 | DS ---
[facility] Detox Discharge Summary Admission Date: 05/27/19 Discharge Date: 05/31/19 - History Present History: Alcohol Dependence Additional Comments: did well with libriium detox regimen no complication through out the detox stay patient is alert and up to his base line social interaction with staff ambulating with wheelchair able to sitting on the edge of the bed eating meals - Physical Exam Results Vital Signs: Vital Signs Temperature 97.9 F 05/31/19 13:15 Pulse Rate 80 05/31/19 13:15 Respiratory Rate 18 05/31/19 13:15 Blood Pressure 119/75 05/31/19 13:15 O2 Sat by Pulse Oximetry (%) Pertinent Admission Physical Exam Findings: alcohol withdrawal sx Laboratory Last Values WBC 3.6 K/mm3 (4.0-10.0) L 05/28/19 08:00 RBC 4.63 M/mm3 (4.00-5.60) 05/28/19 08:00 Hgb 14.9 GM/dL (11.7-16.9) 05/28/19 08:00 Hct 44.6 % (35.4-49) D 05/28/19 08:00 MCV 96.3 fl (80-96) H 05/28/19 08:00 MCH 32.1 pg (25.7-33.7) 05/28/19 08:00 MCHC 33.3 g/dl (32.0-35.9) 05/28/19 08:00 RDW 14.2 % (11.9-15.9) 05/28/19 08:00 Plt Count 124 K/MM3 (134-434) L D 05/28/19 08:00 MPV 9.3 fl (7.5-11.1) D 05/28/19 08:00 Sodium 134 mmol/L (136-145) L 05/29/19 06:00 Potassium 4.0 mmol/L (3.5-5.1) 05/29/19 06:00 Chloride 100 mmol/L (98-107) 05/29/19 06:00 Carbon Dioxide 24 mmol/L (21-32) 05/29/19 06:00 Anion Gap 10 MMOL/L (8-16) 05/29/19 06:00 BUN 18.3 mg/dL (7-18) H 05/29/19 06:00 Creatinine 0.7 mg/dL (0.55-1.3) 05/29/19 06:00 Est GFR (CKD-EPI)AfAm 112.38 05/29/19 06:00 Est GFR (CKD-EPI)NonAf 96.97 05/29/19 06:00 POC Glucometer 120 UNITS (80-120) 05/31/19 10:57 Random Glucose 93 mg/dL (74-106) 05/29/19 06:00 Calcium 8.6 mg/dL (8.5-10.1) 05/29/19 06:00 Total Bilirubin 0.8 mg/dL (0.2-1) 05/29/19 06:00 AST 34 U/L (15-37) 05/29/19 06:00 ALT 32 U/L (13-61) 05/29/19 06:00 Alkaline Phosphatase 111 U/L (45-117) 05/29/19 06:00 Total Protein 7.7 g/dl (6.4-8.2) 05/29/19 06:00 Albumin 3.8 g/dl (3.4-5.0) 05/29/19 06:00 RPR Titer Nonreactive (NONREACTIVE) 05/28/19 08:00 lab noted - Treatment Hospital Course: Detox Protocol Followed, Detoxed Safely, Responded well, Discharged Condition Good, Rehab Referral Accepted Patient has Accepted [facility] - Medication Discharge Medications: Ambulatory Orders Albuterol Sulfate Inhaler - [Ventolin HFA Inhaler -] 2 inh PO Q4H PRN 12/28/18 Metformin HCl [Glucophage] 500 mg PO BID 12/28/18 Montelukast Na [Singulair -] 10 mg PO HS 12/28/18 Amlodipine Besylate [Norvasc -] 5 mg PO DAILY 05/27/19 Aspirin [Aspirin EC] 81 mg PO DAILY 05/27/19 Lisinopril 5 mg PO DAILY 05/27/19 - Diagnosis (1) Hypertension Status: Chronic Qualifiers: Hypertension type: essential hypertension Qualified Code(s): I10 - Essential (primary) hypertension (2) PPD positive Status: Resolved (3) Type II diabetes mellitus Status: Chronic Qualifiers: Diabetes mellitus retirement insulin use: 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 Diabetes mellitus complication status: with other specified complication Qualified Code(s): E11.69 - Type 2 diabetes mellitus with other specified complication (4) Weight loss Status: Acute (5) Alcohol dependence with uncomplicated withdrawal Status: Acute (6) Asthma Status: Chronic Qualifiers: Asthma severity: mild Asthma persistence: intermittent Asthma complication type: with status asthmaticus Qualified Code(s): J45.22 - Mild intermittent asthma with status asthmaticus (7) BPH (benign prostatic hyperplasia) Status: Chronic Qualifiers: Lower urinary tract symptom presence: symptoms absent Qualified Code(s): N40.0 - Benign prostatic hyperplasia without lower urinary tract symptoms (8) Diabetes mellitus Status: Chronic Qualifiers: Diabetes mellitus type: type 2 Diabetes mellitus retirement insulin use: unspecified retirement insulin use status Diabetes mellitus complication status : with other specified complication Qualified Code(s): E11.69 - Type 2 diabetes mellitus with other specified complication (9) Hypertension Status: Chronic Qualifiers: Hypertension type: essential hypertension Qualified Code(s): I10 - Essential (primary) hypertension - AMA Did Patient Leave Against Medical Advice: No CIWA Score - CIWA Score Nausea/Vomitin-No Nausea/No Vomiting Muscle Tremors: 1-None Visible, but [place] Anxiety: 1-Mildly Anxious Agitation: 1-Slight > Activity Paroxysmal Sweats: No Perspiration Orientation: 0-Oriented Tacttile Disturbances: 0-None Auditory Disturbances: 0-None Visual Disturbances: 0-None Headache: 0-None Present CIWA-Ar Total Score: 3
== END 2019-05-31 14:05 | disposition other institution (70) | DRG 897 ==
LOC: YASAS 10:43 → Y3N 13:27
PROVIDERS: ADMIT Surgery; ATTEND Surgery
PROC: HZ2ZZZZ Detoxification Services for Substance Abuse Treatment (ICD-10-PCS; principal; 2019-05-27)
DX: F10.230 Alcohol dependence with withdrawal, uncomplicated (principal); J45.22 Mild intermittent asthma with status asthmaticus; F19.24 Other psychoactive substance dependence with psychoactive substance-induced mood disorder; I10 Essential (primary) hypertension; E11.69 Type 2 diabetes mellitus with other specified complication; N40.0 Benign prostatic hyperplasia without lower urinary tract symptoms; R63.4 Abnormal weight loss; R76.11 Nonspecific reaction to tuberculin skin test without active tuberculosis; D72.819 Decreased white blood cell count, unspecified; D69.6 Thrombocytopenia, unspecified; Z79.4 Long term (current) use of insulin; Z79.82 Long term (current) use of aspirin; Z79.84 Long term (current) use of oral hypoglycemic drugs
CPT/HCPCS: 36415; 80053; 82962; 85027; 86593

== ENCOUNTER 2019-05-31 14:50 | Inpatient (IN) | payer OTHER ==
[2019-05-31] MEDS ORDERED: MAGNESIUM CITRATE 300 ML BOTTLE PO PRN (14:53)
[2019-05-31] MEDS ORDERED: MAGNESIUM HYDROX 2400MG/30ML ORAL SUSPENSION 30 ML CUP PO PRN (14:53)
[2019-05-31] MEDS ORDERED: guaiFENesin 200 MG/10 ML 10 ML UNIT-DOSE CUPS PO PRN (14:53)
[2019-05-31] MEDS ORDERED: P-EPHED 60MG/TRIPROLIDI 2.5MG TABLET PO PRN (14:53)
[2019-05-31] MEDS ORDERED: MAG HYDROX/AL HYDROX/SIMETH 30 ML UNIT-DOSE CUP PO PRN (14:53)
[2019-05-31] MEDS ORDERED: IBUPROFEN 400 MG TABLET (FP) PO PRN (14:53)
[2019-05-31] MEDS ORDERED: MENTHOL/PHENOL 1 EACH UD MM PRN (14:53)
[2019-05-31] MEDS ORDERED: ACETAMINOPHEN 325 MG TABLET (FP) PO PRN (14:53)
[2019-05-31] MEDS ORDERED: LOPERAMIDE HCL 2 MG CAPSULE PO PRN (14:53)
--- NOTE | 2019-05-31 14:53 | HP ---
[facility] Rehab Assess/Revision - Admission History Admitted to Rehab from: [facility] Date of Admission to Rehab: 05/30/19 - Findings Detox History & Physical reviewed: Yes Concur with findings: Yes Comments/Additional Findings: transferred from detox to rehab admission as per protocol Inpatient Rehab Admission - Rehab Decision to Admit Inpatient rehab admission?: Yes - Initial Determination Are CD services needed?: Yes Free of communicable disease: Yes Not in need of hospitalization: Yes - Rehab Admission Criteria Previous failed treatment: Yes Poor recovery environment: Yes Comorbidities: Yes Lacks judgement: Yes Patient is meeting Inpatient Rehab admission criteria:: Yes
[2019-05-31] MEDS ORDERED: ALBUTEROL SO4 8 GM HFA INHALER IH PRN (14:57)
[2019-05-31] MEDS ORDERED: INSULIN (NOVOLOG) ASPART 100 UNITS/ML 10ML VIAL ONE ×2 (16:27→22:10)
[2019-05-31] MEDS: metFORMIN HCL 500 MG TABLET (FP) PO SCH (16:37)
[2019-05-31] MEDS: INSULIN SLIDING SCALE (NOVOLOG) 1 VIAL SQ SCH ×2 (16:37→21:09)
[2019-05-31] MEDS: NAPHAZOLINE/PHENIRAMINE OPHTHALMIC 15 ML BOTTLE OU SCH ×2 (17:54→21:08)
[2019-05-31] MEDS: BACITRACIN 0.9 GM PACKET TP SCH ×2 (17:54→21:07)
[2019-05-31] MEDS: CIPROFLOXACIN HCL 0.3% OPHTH 2.5ML BOTTLE OU SCH ×2 (17:55→21:07)
[2019-05-31] MEDS: MELATONIN 5 MG TABLETS PO PRN (21:08)
[2019-05-31] MEDS: MONTELUKAST NA 10 MG TABLET PO SCH (21:08)
[2019-05-31] MEDS: THIAMINE HCL 100 MG TABLET (FP) PO SCH (21:08)
[2019-06-01] MEDS: metFORMIN HCL 500 MG TABLET (FP) PO SCH ×2 (06:46→16:43)
[2019-06-01] MEDS: CIPROFLOXACIN HCL 0.3% OPHTH 2.5ML BOTTLE OU SCH ×5 (06:46→21:07)
[2019-06-01] MEDS: INSULIN SLIDING SCALE (NOVOLOG) 1 VIAL SQ SCH ×4 (06:48→21:06)
[2019-06-01] MEDS: LISINOPRIL 5 MG TABLET (FP) PO SCH (10:02)
[2019-06-01] MEDS: amLODIPine BESYLATE 5 MG TABLET (FP) PO SCH (10:02)
[2019-06-01] MEDS: PRENATAL VITAMINS W/ FOLIC ACID TABLET (FP) PO SCH (10:02)
[2019-06-01] MEDS: BACITRACIN 0.9 GM PACKET TP SCH ×4 (10:03→21:07)
[2019-06-01] MEDS: ASPIRIN COATED 81 MG TABLET.EC PO SCH (10:03)
[2019-06-01] MEDS: NAPHAZOLINE/PHENIRAMINE OPHTHALMIC 15 ML BOTTLE OU SCH ×4 (10:04→21:08)
[2019-06-01] MEDS ORDERED: INSULIN (NOVOLOG) ASPART 100 UNITS/ML 10ML VIAL ONE (20:41)
[2019-06-01] MEDS: MONTELUKAST NA 10 MG TABLET PO SCH (21:06)
[2019-06-01] MEDS: THIAMINE HCL 100 MG TABLET (FP) PO SCH (21:07)
[2019-06-01] MEDS: MELATONIN 5 MG TABLETS PO PRN (21:07)
[2019-06-02] MEDS: metFORMIN HCL 500 MG TABLET (FP) PO SCH ×2 (06:13→16:38)
[2019-06-02] MEDS: CIPROFLOXACIN HCL 0.3% OPHTH 2.5ML BOTTLE OU SCH ×5 (06:17→21:08)
[2019-06-02] MEDS: INSULIN SLIDING SCALE (NOVOLOG) 1 VIAL SQ SCH ×4 (06:19→21:08)
[2019-06-02] MEDS: NAPHAZOLINE/PHENIRAMINE OPHTHALMIC 15 ML BOTTLE OU SCH ×4 (10:01→21:10)
[2019-06-02] MEDS: BACITRACIN 0.9 GM PACKET TP SCH ×4 (10:01→21:08)
[2019-06-02] MEDS: amLODIPine BESYLATE 5 MG TABLET (FP) PO SCH (10:02)
[2019-06-02] MEDS: LISINOPRIL 5 MG TABLET (FP) PO SCH (10:02)
[2019-06-02] MEDS: PRENATAL VITAMINS W/ FOLIC ACID TABLET (FP) PO SCH (10:02)
[2019-06-02] MEDS: ASPIRIN COATED 81 MG TABLET.EC PO SCH (10:02)
[2019-06-02] MEDS ORDERED: INSULIN (NOVOLOG) ASPART 100 UNITS/ML 10ML VIAL ONE (16:15)
[2019-06-02] MEDS: THIAMINE HCL 100 MG TABLET (FP) PO SCH (21:09)
[2019-06-02] MEDS: MELATONIN 5 MG TABLETS PO PRN (21:09)
[2019-06-02] MEDS: MONTELUKAST NA 10 MG TABLET PO SCH (21:09)
[2019-06-03] MEDS: CIPROFLOXACIN HCL 0.3% OPHTH 2.5ML BOTTLE OU SCH ×3 (06:10→14:20)
[2019-06-03] MEDS: metFORMIN HCL 500 MG TABLET (FP) PO SCH ×2 (06:40→16:36)
[2019-06-03] MEDS: INSULIN SLIDING SCALE (NOVOLOG) 1 VIAL SQ SCH ×3 (06:43→16:39)
[2019-06-03] MEDS: LISINOPRIL 5 MG TABLET (FP) PO SCH (09:47)
[2019-06-03] MEDS: amLODIPine BESYLATE 5 MG TABLET (FP) PO SCH (09:47)
[2019-06-03] MEDS: NAPHAZOLINE/PHENIRAMINE OPHTHALMIC 15 ML BOTTLE OU SCH ×4 (09:47→21:03)
[2019-06-03] MEDS: ASPIRIN COATED 81 MG TABLET.EC PO SCH (09:47)
[2019-06-03] MEDS: PRENATAL VITAMINS W/ FOLIC ACID TABLET (FP) PO SCH (09:47)
[2019-06-03] MEDS: BACITRACIN 0.9 GM PACKET TP SCH ×4 (09:55→21:05)
[2019-06-03] MEDS ORDERED: INSULIN (NOVOLOG) ASPART 100 UNITS/ML 10ML VIAL ONE (16:21)
[2019-06-03] MEDS: THIAMINE HCL 100 MG TABLET (FP) PO SCH (21:03)
[2019-06-03] MEDS: MONTELUKAST NA 10 MG TABLET PO SCH (21:03)
[2019-06-04] MEDS: metFORMIN HCL 500 MG TABLET (FP) PO SCH ×2 (06:42→16:57)
[2019-06-04] MEDS: INSULIN SLIDING SCALE (NOVOLOG) 1 VIAL SQ SCH ×2 (06:47→16:58)
[2019-06-04] MEDS: LISINOPRIL 5 MG TABLET (FP) PO SCH (10:02)
[2019-06-04] MEDS: ASPIRIN COATED 81 MG TABLET.EC PO SCH (10:02)
[2019-06-04] MEDS: NAPHAZOLINE/PHENIRAMINE OPHTHALMIC 15 ML BOTTLE OU SCH ×4 (10:02→21:11)
[2019-06-04] MEDS: amLODIPine BESYLATE 5 MG TABLET (FP) PO SCH (10:02)
[2019-06-04] MEDS: BACITRACIN 0.9 GM PACKET TP SCH ×4 (10:03→21:11)
[2019-06-04] MEDS: PRENATAL VITAMINS W/ FOLIC ACID TABLET (FP) PO SCH (10:03)
[2019-06-04] MEDS ORDERED: INSULIN (NOVOLOG) ASPART 100 UNITS/ML 10ML VIAL ONE (16:43)
[2019-06-04] MEDS: THIAMINE HCL 100 MG TABLET (FP) PO SCH (21:10)
[2019-06-04] MEDS: MONTELUKAST NA 10 MG TABLET PO SCH (21:10)
[2019-06-04] MEDS: MELATONIN 5 MG TABLETS PO PRN (21:11)
[2019-06-05] MEDS: metFORMIN HCL 500 MG TABLET (FP) PO SCH ×2 (06:35→16:50)
[2019-06-05] MEDS: INSULIN SLIDING SCALE (NOVOLOG) 1 VIAL SQ SCH ×2 (06:38→16:51)
[2019-06-05] MEDS: BACITRACIN 0.9 GM PACKET TP SCH ×4 (10:17→21:31)
[2019-06-05] MEDS: LISINOPRIL 5 MG TABLET (FP) PO SCH ×2 (10:17→10:21)
[2019-06-05] MEDS: PRENATAL VITAMINS W/ FOLIC ACID TABLET (FP) PO SCH (10:18)
[2019-06-05] MEDS: ASPIRIN COATED 81 MG TABLET.EC PO SCH (10:18)
[2019-06-05] MEDS: amLODIPine BESYLATE 5 MG TABLET (FP) PO SCH (10:19)
[2019-06-05] MEDS: NAPHAZOLINE/PHENIRAMINE OPHTHALMIC 15 ML BOTTLE OU SCH ×4 (10:20→21:31)
[2019-06-05] MEDS ORDERED: INSULIN (NOVOLOG) ASPART 100 UNITS/ML 10ML VIAL ONE (16:32)
[2019-06-05] MEDS: MONTELUKAST NA 10 MG TABLET PO SCH (21:31)
[2019-06-05] MEDS: MELATONIN 5 MG TABLETS PO PRN (21:31)
[2019-06-05] MEDS: THIAMINE HCL 100 MG TABLET (FP) PO SCH (21:31)
[2019-06-06] MEDS: INSULIN SLIDING SCALE (NOVOLOG) 1 VIAL SQ SCH ×2 (06:16→16:47)
[2019-06-06] MEDS: metFORMIN HCL 500 MG TABLET (FP) PO SCH ×2 (06:16→17:00)
[2019-06-06] MEDS: PRENATAL VITAMINS W/ FOLIC ACID TABLET (FP) PO SCH (09:38)
[2019-06-06] MEDS: ASPIRIN COATED 81 MG TABLET.EC PO SCH (09:38)
[2019-06-06] MEDS: LISINOPRIL 5 MG TABLET (FP) PO SCH (09:38)
[2019-06-06] MEDS: BACITRACIN 0.9 GM PACKET TP SCH ×4 (09:39→21:14)
[2019-06-06] MEDS: amLODIPine BESYLATE 5 MG TABLET (FP) PO SCH (09:39)
[2019-06-06] MEDS: NAPHAZOLINE/PHENIRAMINE OPHTHALMIC 15 ML BOTTLE OU SCH ×4 (09:39→21:14)
[2019-06-06] MEDS: MONTELUKAST NA 10 MG TABLET PO SCH (21:15)
[2019-06-06] MEDS: MELATONIN 5 MG TABLETS PO PRN (21:15)
[2019-06-06] MEDS: THIAMINE HCL 100 MG TABLET (FP) PO SCH (21:15)
[2019-06-07] MEDS: metFORMIN HCL 500 MG TABLET (FP) PO SCH ×2 (06:30→16:44)
[2019-06-07] MEDS: INSULIN SLIDING SCALE (NOVOLOG) 1 VIAL SQ SCH ×2 (06:31→16:53)
[2019-06-07] MEDS: amLODIPine BESYLATE 5 MG TABLET (FP) PO SCH (09:49)
[2019-06-07] MEDS: PRENATAL VITAMINS W/ FOLIC ACID TABLET (FP) PO SCH (09:49)
[2019-06-07] MEDS: ASPIRIN COATED 81 MG TABLET.EC PO SCH (09:49)
[2019-06-07] MEDS: BACITRACIN 0.9 GM PACKET TP SCH ×4 (09:50→21:08)
[2019-06-07] MEDS: NAPHAZOLINE/PHENIRAMINE OPHTHALMIC 15 ML BOTTLE OU SCH ×4 (09:50→21:07)
[2019-06-07] MEDS: LISINOPRIL 5 MG TABLET (FP) PO SCH (09:50)
[2019-06-07] MEDS: SELENIUM SULFIDE 2.5% LOTION 4 OZ. TP SCH (16:14)
[2019-06-07] MEDS ORDERED: INSULIN (NOVOLOG) ASPART 100 UNITS/ML 10ML VIAL ONE (16:36)
[2019-06-07] MEDS: MONTELUKAST NA 10 MG TABLET PO SCH (21:07)
[2019-06-07] MEDS: THIAMINE HCL 100 MG TABLET (FP) PO SCH (21:07)
[2019-06-07] MEDS: MELATONIN 5 MG TABLETS PO PRN (21:07)
[2019-06-08] MEDS: metFORMIN HCL 500 MG TABLET (FP) PO SCH ×2 (06:24→16:56)
[2019-06-08] MEDS: INSULIN SLIDING SCALE (NOVOLOG) 1 VIAL SQ SCH ×2 (06:44→16:59)
[2019-06-08] MEDS: PRENATAL VITAMINS W/ FOLIC ACID TABLET (FP) PO SCH (09:55)
[2019-06-08] MEDS: LISINOPRIL 5 MG TABLET (FP) PO SCH (09:55)
[2019-06-08] MEDS: ASPIRIN COATED 81 MG TABLET.EC PO SCH (09:55)
[2019-06-08] MEDS: amLODIPine BESYLATE 5 MG TABLET (FP) PO SCH (09:55)
[2019-06-08] MEDS: NAPHAZOLINE/PHENIRAMINE OPHTHALMIC 15 ML BOTTLE OU SCH ×4 (09:55→21:06)
[2019-06-08] MEDS: SELENIUM SULFIDE 2.5% LOTION 4 OZ. TP SCH (09:55)
[2019-06-08] MEDS: BACITRACIN 0.9 GM PACKET TP SCH ×4 (10:00→21:06)
[2019-06-08] MEDS ORDERED: INSULIN (NOVOLOG) ASPART 100 UNITS/ML 10ML VIAL ONE (16:36)
[2019-06-08] MEDS: THIAMINE HCL 100 MG TABLET (FP) PO SCH (21:06)
[2019-06-08] MEDS: MELATONIN 5 MG TABLETS PO PRN (21:06)
[2019-06-08] MEDS: MONTELUKAST NA 10 MG TABLET PO SCH (21:06)
[2019-06-09] MEDS: metFORMIN HCL 500 MG TABLET (FP) PO SCH ×2 (06:43→16:39)
[2019-06-09] MEDS: INSULIN SLIDING SCALE (NOVOLOG) 1 VIAL SQ SCH ×2 (07:03→16:41)
--- NOTE | 2019-06-09 08:48 | PN ---
S Progress Note Note: Pt reports he fell down 3 weeks ago with laceration to his head and went to [facility] where he received 6 stitches to the head. Pt is requesting stitches removed because says its been too long and could not go to [place] to remove it. Vital Signs - 24 hr 06/08/19 06/09/19 06/09/19 10:00 00:30 03:27 Temperature Pulse Rate 98 H 98 H Respiratory 16 18 Rate Blood Pressure 143/60 06/09/19 06/09/19 06:30 06:50 Temperature 97.6 F Pulse Rate 72 80 Respiratory 18 18 Rate Blood Pressure 130/68 Alert o x 3 nad oob ambulating with steady gait Head: Six stitches on right top of head removed. Area clean and closed.
[2019-06-09] MEDS: BACITRACIN 15 GM TUBE TOPICAL OINTMENT TP SCH ×4 (10:07→21:11)
[2019-06-09] MEDS: LISINOPRIL 5 MG TABLET (FP) PO SCH (10:07)
[2019-06-09] MEDS: PRENATAL VITAMINS W/ FOLIC ACID TABLET (FP) PO SCH (10:07)
[2019-06-09] MEDS: ASPIRIN COATED 81 MG TABLET.EC PO SCH (10:07)
[2019-06-09] MEDS: amLODIPine BESYLATE 5 MG TABLET (FP) PO SCH (10:07)
[2019-06-09] MEDS: NAPHAZOLINE/PHENIRAMINE OPHTHALMIC 15 ML BOTTLE OU SCH ×4 (10:08→21:11)
[2019-06-09] MEDS: SELENIUM SULFIDE 2.5% LOTION 4 OZ. TP SCH (10:08)
--- NOTE | 2019-06-09 16:18 | DS ---
[facility] Rehab Discharge Summary - [facility] Rehab Discharge Summary Admission Date: 05/31/19 Discharge Date: 06/10/19 - History Present History: Alcohol dependence Additional Comments: Pt is a 68 y/o male with a hx of alcohol dependence admitted to rehab and scheduled to discharge on 06/10/19. Pt was seen by his counselor, Ms Gonzalezdarieladominique Moseley and has been scheduled for a follow up with [facility]PD aftercare. Pt reports no current PMD but has a medical appointment set up with [facility] for medical and mental health management. Pt is homeless and will follow up at the [facility]. Pertinent Past History: Asthma BPH HTN DM Hx Left shoulder Pain S/p fall with laceration and nigel(6) to head(came into this admission with it ) mood Disorder - Discharge Physical Exam Vital Signs: Vital Signs Temperature 97.6 F 06/09/19 06:50 Pulse Rate 84 06/09/19 10:00 Respiratory Rate 18 06/09/19 06:50 Blood Pressure 107/55 L 06/09/19 10:00 O2 Sat by Pulse Oximetry (%) alert o x 3 nad oob ambulating with steady gait Heent:Normocephalic, eomi,roly,old laceration site healed, and 6 nigel removed. Cardiac:s1 s2, rrr Lungs:cta,ruddy. Abdomen;+bs,+fatty,nt,nd. Extremities/Skin:dry and flaky scalp,no edema,full ROM,skin intact. Pertinent Admission Physical Exam Findings: Laboratory Tests 05/31/19 05/31/19 06/01/19 16:35 20:40 06:11 POC Glucometer 106 142 104 06/01/19 06/01/19 06/01/19 12:01 16:28 20:46 POC Glucometer 133 111 133 06/02/19 06/02/19 06/02/19 06:13 11:59 16:40 POC Glucometer 109 138 134 06/02/19 06/03/19 06/03/19 20:46 06:40 16:35 POC Glucometer 136 97 127 06/04/19 06/04/19 06/05/19 06:41 16:57 05:58 POC Glucometer 102 158 86 06/05/19 06/06/19 06/06/19 16:50 06:15 16:31 POC Glucometer 117 104 124 06/07/19 06/07/19 06/08/19 06:29 16:44 06:23 POC Glucometer 90 111 93 06/08/19 06/09/19 06/09/19 16:58 06:12 16:40 POC Glucometer 110 95 112 06/10/19 06:12 POC Glucometer 99 Pt reported after admission hx of fall 3-4 weeks ago with laceration to right side top of head. Received care at [facility] with [address] on arrival to detox/rehab treatment. Stated he did not follow up to removed nigel and wanted it removed for him while here in treatment. Six [place] were removed, area was clean and healed. - Treatment Discharge Condition: Discharge condition good Hospital Course: Rehabilitated safely and responded well CD aftercare referral accepted - Medication Discharge Medications: Ambulatory Orders Albuterol Sulfate Inhaler - [Ventolin HFA Inhaler -] 2 inh PO Q4H PRN #1 inhaler 06/09/19 Amlodipine Besylate [Norvasc -] 5 mg PO DAILY #30 tablet 06/09/19 Aspirin [Aspirin EC] 81 mg PO DAILY #30 tablet. 06/09/19 Lisinopril 5 mg PO DAILY #30 tablet 06/09/19 Metformin HCl [Glucophage] 500 mg PO BID #60 tablet 06/09/19 Montelukast Na [Singulair -] 10 mg PO HS #30 tablet 06/09/19 - Medication-Assisted Treatment (MAT) Medication-Assisted Treatment (MAT): No - Discharge Instructions Diet, activity, other medical instructions: Diet:EARLENE/NCS Activity: oob ad lisandro Other medical instructions:follow up with primary care[facility] management at [facility] on [address] [place] [address]. Date:06/11/19 Time:10:30 a.m Follow up with CD aftercare with [facility] OPD on [address] [place], [place] as recommended. - Diagnosis (1) Alcohol dependence Current Visit: Yes Status: Chronic Qualifiers: Substance use status: uncomplicated Qualified Code(s): F10.20 - Alcohol dependence, uncomplicated (2) Asthma Current Visit: Yes Status: Chronic Qualifiers: Asthma severity: mild Asthma persistence: intermittent Asthma complication type: with status asthmaticus Qualified Code(s): J45.22 - Mild intermittent asthma with status asthmaticus (3) BPH (benign prostatic hyperplasia) Current Visit: Yes Status: Chronic Qualifiers: Lower urinary tract symptom presence: symptoms absent Qualified Code(s): N40.0 - Benign prostatic hyperplasia without lower urinary tract symptoms (4) Hypertension Current Visit: Yes Status: Chronic Qualifiers: Hypertension type: essential hypertension Qualified Code(s): I10 - Essential (primary) hypertension (5) Type II diabetes mellitus Current Visit: Yes Status: Chronic Qualifiers: Diabetes mellitus senior care insulin use: 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 Reminded pt to follow up with primary care as scheduled for continuation of care thereafter.
[2019-06-09] MEDS ORDERED: INSULIN (NOVOLOG) ASPART 100 UNITS/ML 10ML VIAL ONE (16:30)
[2019-06-09] MEDS: THIAMINE HCL 100 MG TABLET (FP) PO SCH (21:11)
[2019-06-09] MEDS: MONTELUKAST NA 10 MG TABLET PO SCH (21:11)
[2019-06-09] MEDS: MELATONIN 5 MG TABLETS PO PRN (21:12)
[2019-06-10] MEDS: metFORMIN HCL 500 MG TABLET (FP) PO SCH (06:13)
[2019-06-10] MEDS: INSULIN SLIDING SCALE (NOVOLOG) 1 VIAL SQ SCH (06:14)
[2019-06-10 06:45] VITALS: TEMP 97.4
[2019-06-10] MEDS: amLODIPine BESYLATE 5 MG TABLET (FP) PO SCH (09:49)
[2019-06-10] MEDS: LISINOPRIL 5 MG TABLET (FP) PO SCH (09:49)
[2019-06-10] MEDS: ASPIRIN COATED 81 MG TABLET.EC PO SCH (09:49)
[2019-06-10] MEDS: BACITRACIN 15 GM TUBE TOPICAL OINTMENT TP SCH ×2 (09:50→13:06)
[2019-06-10] MEDS: PRENATAL VITAMINS W/ FOLIC ACID TABLET (FP) PO SCH (09:50)
[2019-06-10] MEDS: NAPHAZOLINE/PHENIRAMINE OPHTHALMIC 15 ML BOTTLE OU SCH ×2 (09:50→13:06)
[2019-06-10] MEDS: SELENIUM SULFIDE 2.5% LOTION 4 OZ. TP SCH (09:50)
--- NOTE | 2019-06-10 10:14 | PN ---
S Progress Note Note: Pt was d/c' d this morning as scheduled. Pt is alert o x 3. Denies s/h/i. Oob ambulating with steady gait. Pt eager to leave to follow up with next level of care. Vital Signs - 24 hr 06/10/19 06/10/19 06/10/19 00:30 03:30 06:45 Temperature 97.4 F L Pulse Rate 81 Respiratory 18 18 18 Rate Blood Pressure 134/88
[2019-06-10 12:08] VITALS: BP 109/62; PULSE 91
== END 2019-06-10 14:45 | disposition home or self-care (01) | DRG 895 ==
LOC: YASAS 14:50 → Y5N 14:51
PROVIDERS: ADMIT Neuromusculoskeletal Medicine & OMM; ATTEND Neuromusculoskeletal Medicine & OMM
PROC: HZ42ZZZ Group Counseling for Substance Abuse Treatment, Cognitive-Behavioral (ICD-10-PCS; principal; 2019-05-31)
DX: F10.20 Alcohol dependence, uncomplicated (principal); J45.22 Mild intermittent asthma with status asthmaticus; I10 Essential (primary) hypertension; E11.9 Type 2 diabetes mellitus without complications; Z79.4 Long term (current) use of insulin; N40.0 Benign prostatic hyperplasia without lower urinary tract symptoms; M25.512 Pain in left shoulder; Z48.02 Encounter for removal of sutures; S01.81XD Laceration without foreign body of other part of head, subsequent encounter; W19.XXXD Unspecified fall, subsequent encounter; Z59.0 Homelessness
CPT/HCPCS: 82962